=== PATIENT | female | born 1960 | race African-American/Black ===

== ENCOUNTER 2018-07-27 19:28 | Emergency (ER) | payer SELFPAY ==
[~2018-07-27] VITALS: Ht 157.5 cm; Wt 82.0 kg
[2018-07-27] MEDS ORDERED: IBUPROFEN 600MG TABLET PO ONE (21:15)
[2018-07-27 22:50] VITALS: BP 144/72
== END 2018-07-27 22:50 | disposition home or self-care (01) ==
LOC: ER 19:28
DX: S40.012A Contusion of left shoulder, initial encounter (principal); S10.93XA Contusion of unspecified part of neck, initial encounter; I10 Essential (primary) hypertension; F17.200 Nicotine dependence, unspecified, uncomplicated; V49.88XA Car occupant (driver) (passenger) injured in other specified transport accidents, initial encounter; Y93.89 Activity, other specified; Y92.89 Other specified places as the place of occurrence of the external cause; Y99.8 Other external cause status
CPT/HCPCS: 71045; 73030; 99283